=== PATIENT | male | born 1970 | race Caucasian/White ===

== ENCOUNTER 2021-08-26 12:05 | Emergency (ER) | payer BC ==
[2021-08-26] MEDS ORDERED: Magnesium Citrate Solution 296 ML Bottle PO ONE (15:13)
== END 2021-08-26 15:37 | disposition home or self-care (01) ==
LOC: JD.ED 12:05
DX: K29.70 Gastritis, unspecified, without bleeding (principal); R11.2 Nausea with vomiting, unspecified; K21.9 Gastro-esophageal reflux disease without esophagitis; Z79.899 Other long term (current) drug therapy
CPT/HCPCS: 36415; 74019; 74019-26; 80053; 85025; 86140; 99284